=== PATIENT | female | born 1960 | race Caucasian/White ===

== ENCOUNTER 2020-01-20 07:47 | Day surgery (SDC) | payer OTHER ==
[2020-01-17 09:27] LABS: BASOPHILS # (AUTO) 0.03 x10^3/uL (0-0.1); BASOPHILS % (AUTO) 1 % (0-1); EOSINOPHILS % (AUTO) 4 % (1-7); LYMPHOCYTES % (AUTO) 31 % (22-44); MD NO; MEAN CORPUSCULAR HEMOGLOBIN 30.3 pg (27.0-34.8); MEAN CORPUSCULAR HGB CONC 32.5 g/dL (32.4-35.8); MEAN CORPUSCULAR VOLUME 93.2 fL (80-100); MEAN PLATELET VOLUME 8.6 fL (7.4-10.4); MONOCYTES # (AUTO) 0.34 x10^3/uL (0.2-0.8); MONOCYTES % (AUTO) 7 % (2-9); NEUTROPHILS # (AUTO) 3.04 x10^3/uL (1.8-6.8); NEUTROPHILS % (AUTO) 58 % (42-75); PLATELET COUNT 289 x10^3/uL (130-400); RED BLOOD COUNT 4.26 x10^6/uL (3.82-5.3); RED CELL DISTRIBUTION WIDTH 14.4 % (9.6-15.2)
[2020-01-17 09:35] LABS: ALBUMIN 3.8 g/dL (3.4-5.0); ANION GAP 4 mmol/L (5-15); CALCIUM 9.3 mg/dL (8.5-10.1); CHLORIDE 110 mmol/L (98-107)
[2020-01-17 09:39] LABS: ALANINE AMINOTRANSFERASE 29 U/L (12-78); ALKALINE PHOSPHATASE 100 U/L (45-117); BILIRUBIN,TOTAL 0.3 mg/dL (0.2-1.0); CREATININE 1.23 mg/dL (0.55-1.02); TOTAL PROTEIN 7.6 g/dL (6.4-8.2)
[~2020-01-20] VITALS: Ht 162.6 cm; Wt 78.4 kg
[~2020-01-20 07:47] MED LIST: ACET650S21 PO; ASPI-496 PO; ATOR-2 PO; BIOT5TAB SL; BUPIVACAINE/PF 0.25% ONE; CHOL10003 PO; CIME200T6 PO; CYAN100072 PO; DIPH25CA61 PO; EPINEPHRINE 1 MG/ML, 1ML ONE; ESTR0.5T PO; FLUT9.9S NAS; LACT1CAP37 PO; LORA10CA PO; LOSA100T14 PO; METF500T17 PO; METO25TA35 PO; MONT10TA11 PO; NAPR220C2 PO; SILVER NITRATE STICK TP ONE; TURM538C PO; UBID100C24 PO
[2020-01-20 08:23] VITALS: BP 125/75
[2020-01-20] MEDS ORDERED: CEFD300C37 PO (08:30)
[2020-01-20] MEDS ORDERED: LACTATED RINGERS 1,000 ML IV SCH (08:33)
[2020-01-20] MEDS ORDERED: CHLORHEXIDINE 15 ML UDC MM ONE (09:00)
[2020-01-20] MEDS ORDERED: FLUORESCEIN SODIUM 500 MG/5 ML ONE (09:37)
[2020-01-20] MEDS ORDERED: LIDOCAINE 1%-EPI 1:100K, 20ML ONE (09:37)
[2020-01-20] MEDS ORDERED: PROPOFOL 10 MG/ML, 20ML ONE (09:39)
[2020-01-20] MEDS ORDERED: ROCURONIUM 10MG/ML,5ML ONE (09:39)
[2020-01-20] MEDS ORDERED: DEXAMETHASONE 4 MG/ML, 1ML ONE ×2 (09:39→09:49)
[2020-01-20] MEDS ORDERED: MIDAZOLAM 1 MG/ML, 2ML ONE (09:39)
[2020-01-20] MEDS ORDERED: FENTANYL PF 250 MCG/5ML ONE (09:40)
[2020-01-20] MEDS ORDERED: ONDANSETRON 2MG/ML, 2ML ONE (09:49)
[2020-01-20] MEDS ORDERED: SUGAMMADEX 200 MG/2 ML IVPush ONE (09:49)
[2020-01-20] MEDS ORDERED: CEFAZOLIN 1,000 MG ONE (09:49)
[2020-01-20] MEDS ORDERED: ACETAMINOPHEN 325 MG TABLET PO PRN (10:30)
[2020-01-20] MEDS ORDERED: MEPERIDINE/PF 25MG/0.5ML IVPush PRN (10:30)
[2020-01-20] MEDS ORDERED: PROMETHAZINE 12.5 MG SUPP PR PRN (10:30)
[2020-01-20] MEDS ORDERED: DIPHENHYDRAMINE 50 MG/ML, 1ML IVPush PRN (10:30)
[2020-01-20] MEDS ORDERED: PROMETHAZINE 25 MG/ML, 1ML IVPush PRN (10:30)
[2020-01-20] MEDS ORDERED: LABETALOL 5MG/ML, 20ML IV PRN (10:30)
[2020-01-20] MEDS ORDERED: MIDAZOLAM 1 MG/ML, 2ML IV PRN (10:30)
[2020-01-20] MEDS ORDERED: ALBUTEROL SULFATE 2.5 MG/3 ML NPPB PRN (10:30)
[2020-01-20] MEDS ORDERED: FENTANYL PF 100 MCG/2ML IV PRN (10:30)
[2020-01-20] MEDS ORDERED: DIAZEPAM 5 MG/ML, 2ML IVPush PRN (10:30)
[2020-01-20] MEDS ORDERED: hydrALAzine 20 MG/ML, 1ML IV PRN (10:30)
[2020-01-20] MEDS ORDERED: EPHEDRINE 50 MG/ML, 1ML IVPush PRN (10:30)
[2020-01-20] MEDS ORDERED: ONDANSETRON 2MG/ML, 2ML IVPush PRN (10:30)
[2020-01-20] MEDS ORDERED: OXYcodone 5 MG/5 ML ORAL.SOL UDC PO PRN (10:30)
[2020-01-20] MEDS ORDERED: HYDROmorphone 1 MG/ML, 1ML INJ IVPush PRN (10:30)
[2020-01-20] MEDS ORDERED: MANNITOL PMX 20% 500 ML ONE (11:06)
[2020-01-20] MEDS ORDERED: KETOROLAC 30 MG/1 ML ONE (11:47)
[2020-01-20] MEDS ORDERED: KETOROLAC 30 MG/1 ML IVPush ONE (12:00)
[2020-01-20] MEDS ORDERED: OXYcodone 5 MG/5 ML ORAL.SOL UDC ONE (12:06)
== END 2020-01-20 15:10 | disposition home or self-care (01) ==
LOC: OUT 07:47
PROVIDERS: ATTEND Obstetrics & Gynecology Gynecology
DX: N81.11 Cystocele, midline (principal); Z11.59 Encounter for screening for other viral diseases; N81.6 Rectocele; N94.10 Unspecified dyspareunia; E11.9 Type 2 diabetes mellitus without complications; E78.5 Hyperlipidemia, unspecified; I10 Essential (primary) hypertension; Z79.82 Long term (current) use of aspirin; Z79.84 Long term (current) use of oral hypoglycemic drugs; Z79.899 Other long term (current) drug therapy; Z88.8 Allergy status to other drugs, medicaments and biological substances; Z91.030 Bee allergy status; Z91.040 Latex allergy status; Z90.49 Acquired absence of other specified parts of digestive tract; Z90.710 Acquired absence of both cervix and uterus; Z82.49 Family history of ischemic heart disease and other diseases of the circulatory system; Z83.42 Family history of familial hypercholesterolemia; Z84.1 Family history of disorders of kidney and ureter
CPT/HCPCS: 36415; 57260; 71046; 80053; 82962; 85025; 87635; 93005; J0690; J1100; J1885; J2250; J2405; J2704; J3010; J3490; J7120; J0171